=== PATIENT | female | born 1990 | race Caucasian/White ===

== ENCOUNTER 2020-08-09 20:05 | Emergency (ER) | payer BC ==
[~2020-08-09] VITALS: Ht 175.3 cm; Wt 204.1 kg
[2020-08-09 20:07] VITALS: Ht 175.3 cm; Wt 204.1 kg
[2020-08-10 01:26] VITALS: BP 107/56
== END 2020-08-10 01:26 | disposition home or self-care (01) ==
LOC: ED 20:05
DX: U07.1 COVID-19 (principal); I10 Essential (primary) hypertension
CPT/HCPCS: 36600; M0239; Q0239

== ENCOUNTER 2020-08-16 15:11 | Emergency (ER) | payer BC ==
[~2020-08-16] VITALS: Ht 170.2 cm; Wt 113.4 kg
[2020-08-16 15:13] VITALS: Ht 170.2 cm; Wt 113.4 kg
[2020-08-16] MEDS ORDERED: MORGIDOX 1X100100 MG PO (15:59)
[2020-08-16] MEDS ORDERED: TESSALON PERLE100 MG PO (15:59)
[2020-08-16] MEDS ORDERED: PROAIR HFA8.5 GM INH (15:59)
[2020-08-16 16:12] VITALS: BP 137/90
== END 2020-08-16 16:12 | disposition home or self-care (01) ==
LOC: ED 15:11
DX: E66.9 Obesity, unspecified (principal); R05 Cough; R53.1 Weakness; I10 Essential (primary) hypertension; Z68.39 Body mass index [BMI] 39.0-39.9, adult; Z76.0 Encounter for issue of repeat prescription; Z20.828 Contact with and (suspected) exposure to other viral communicable diseases